=== PATIENT | male | born 1950 | race American Indian/Alaskan Native ===

== ENCOUNTER 2020-09-29 10:05 | Day surgery (SDC) | payer MEDICARE ==
[2020-09-29] MEDS ORDERED: ceFAZolin/STERILE WATER 2 GM/20 ML SYRINGE IV NR (13:00)
[2020-09-29] MEDS ORDERED: BUPIVACAINE/PF (0.5%) 5 MG/1 ML 30 ML VIAL INFILTRATI ONE (13:02)
[2020-09-29] MEDS ORDERED: ONDANSETRON 4 MG/2 ML INJ IV PRN (13:03)
[2020-09-29] MEDS ORDERED: HYDROmorphone 1 MG/1 ML INJ IV PRN ×2 (13:03)
[2020-09-29] MEDS ORDERED: fentaNYL 100 MCG/2 ML INJ IV ONE (13:03)
--- NOTE | 2020-09-29 13:04 | Anesthesia Day of Surgery ---
Anesthesia Day of Surgery - Day of Surgery Patient Examined: Yes Patient H&P Reviewed: Yes Patient is NPO: Yes
--- NOTE | 2020-09-29 13:06 | Anesthesia Consultation ---
Anesthesia Consult and Med Hx Date of service: 09/29/20 - Airway Anesthetic Teeth Evaluation: Chipped ROM Head & Neck: Adequate Mental/Hyoid Distance: Adequate Mallampati Class: Class II Intubation Access Assessment: Probably Good - Pre-Operative Health Status ASA Pre-Surgery Classification: ASA3 Proposed Anesthetic Plan: Local (BLOCK; GA if needed) - Pulmonary Hx Respiratory Symptoms: No (+2FS; active) - Cardiovascular System Hx Hypertension: Yes - Central Nervous System Hx Neuromuscular Disorder: Yes (Gout) - Endocrine Hx Non-Insulin Dependent Diabetes: No - Hematic Hx Sickle Cell Disease: No - Other Systems Hx Cancer: No Hx Obesity: Yes
[2020-09-29] MEDS ORDERED: LACTATED RINGERS 1,000 ML IV SCH (13:15)
[2020-09-29] MEDS ORDERED: NEOMY 40 MG/POLYMYXIN B 200,000 UNITS/ML (GU) AMPULE IR ONE (13:38)
[2020-09-29] MEDS ORDERED: MIDAZOLAM 2 MG/2 ML INJ IV NR (14:00)
[2020-09-29] MEDS ORDERED: propofoL 200 MG/20 ML VIAL IV ONE ×3 (15:06)
[2020-09-29] MEDS ORDERED: fentaNYL 100 MCG/2 ML INJ ONE (15:07)
[2020-09-29] MEDS ORDERED: LIDOCAINE (1%) 10 MG/1 ML VIAL 20 ML MDV ONE (16:37)
[2020-09-29] MEDS ORDERED: LIDOCAINE (1%) 10 MG/1 ML VIAL 20 ML MDV INFILTRATI ONE (16:47)
--- NOTE | 2020-09-29 17:22 | Procedure Note ---
Date of procedure: 09/29/20 Pre-op diagnosis: Chronic olecranon bursitis Post-op diagnosis: same Procedure: Excision of olecranon bursa right elbow Procedure The patient was brought to the OR after being given a scalene nerve block in preop holding he was then placed on the OR table in the supine position following induction with MAC anesthesia patient's right upper extremity was prepped and draped in the usual sterile manner a timeout procedure was done to identify the patient and the correct operative site. The arm was exsanguinated followed by inflation of the pneumatic tourniquet to 250 mmHg. Using the previous posterior midline incision this was then taken down sharply through skin and subcu the olecranon bursa was seen and after careful dissection the tissue was then shelled out from the surrounding soft tissue using a #15 blade the bursa was excised and given to our scrub nurse and will be sent to pathology for formal ID next the wound was then copiously irrigated and was closed in a standard routine fashion postop dressings were applied patient tolerated proc edure there were no complications Anesthesia: regional Surgeon: EDILBERTO HAM (Ariana Lutz, 1st assist) Estimated blood loss: minimal Pathology: list (Soft tissue mass right elbow) Specimen disposition: to lab Condition: stable Disposition: PACU
[2020-09-29 18:04] VITALS: BP 137/82
--- NOTE | 2020-09-29 18:18 | Post Anesthesia Evaluation ---
- Post Anesthesia Evaluation Patient Participated: Yes Airway Patent: Yes Stable Respiratory Function: Yes Nausea/Vomiting: No Temp > 96.8F: Yes Pain Manageable: Yes Adequeate Hydration: Yes Anesthesia Complications: No Block Receding Appropriately: Yes Patient on Ventilator: No
== END 2020-09-29 18:40 | disposition home or self-care (01) ==
LOC: OR 10:05
PROVIDERS: ATTEND Orthopaedic Surgery
DX: M70.21 Olecranon bursitis, right elbow (principal); I10 Essential (primary) hypertension; E66.9 Obesity, unspecified; Z80.8 Family history of malignant neoplasm of other organs or systems; Z79.899 Other long term (current) drug therapy; Z87.891 Personal history of nicotine dependence; Z88.8 Allergy status to other drugs, medicaments and biological substances; Z98.890 Other specified postprocedural states; Z68.33 Body mass index [BMI] 33.0-33.9, adult
CPT/HCPCS: 24105; 64417; 88305; J0690; J2250; J2704; J3010; J7120; 88307